=== PATIENT | male | born 1955 ===

== ENCOUNTER 2016-11-03 05:24 | Day surgery (SDC) | payer OTHER ==
[~2016-11-03] VITALS: Ht 190.5 cm; Wt 118.1 kg
[2016-11-03 06:23] VITALS: BP 125/70; PULSE 111; TEMP 97.1
[2016-11-03] MEDS ORDERED: NEURONTIN600 MG/TAB PO (06:36)
[2016-11-03] MEDS ORDERED: HCTZ 25MG TAB25 MG PO (06:37)
[2016-11-03] MEDS ORDERED: NAC600 MG PO (06:37)
[2016-11-03] MEDS ORDERED: GLUCOPHAGE1000 MG PO (06:38)
[2016-11-03] MEDS ORDERED: PREDNISONE 2.52.5 MG PO (06:39)
[2016-11-03] MEDS ORDERED: BACTRIM DS 8001 TAB PO (06:41)
[2016-11-03] MEDS ORDERED: CELLCEPT 5500 MG/TAB PO (06:42)
[2016-11-03] MEDS ORDERED: ZESTRIL 20MG TA20 MG PO (06:43)
[2016-11-03] MEDS ORDERED: RITUXAN 50500 MG/50 IV (06:44)
[2016-11-03 08:52] VITALS: BP 134/76; PULSE 117; TEMP 97.8
[2016-11-03 09:05] VITALS: BP 134/78; PULSE 118
[2016-11-03 09:20] VITALS: BP 120/70; PULSE 119
== END 2016-11-03 09:45 | disposition home or self-care (01) ==
LOC: SDCO 05:24
DX: M70.22 Olecranon bursitis, left elbow (principal)
CPT/HCPCS: J0690; J1720; J2250; J2704; J7030